=== PATIENT | female | born 1950 | race Caucasian/White ===

== ENCOUNTER 2020-03-21 11:41 | Emergency (ER) | payer BC, OTHER ==
[2020-03-22 14:15] LABS: SARS-CoV-2 MS2 Positive; SARS-CoV-2 N Gene Negative; SARS-CoV-2 S Gene Negative; SARS-CoV-2 orf1ab Negative
== END 2020-03-21 11:56 | disposition home or self-care (01) ==
LOC: ERS 11:41
DX: Z20.828 Contact with and (suspected) exposure to other viral communicable diseases (principal); Z79.899 Other long term (current) drug therapy
CPT/HCPCS: 87635; 99283; U0003

== ENCOUNTER 2021-03-05 06:45 | Outpatient (CLI) | payer BC | END 2021-03-05 06:46 | disposition home or self-care (01) | LOC: BICMRI 06:45 | PROVIDERS: ATTEND Specialist | DX: C50.911 Malignant neoplasm of unspecified site of right female breast (principal) | CPT/HCPCS: 82565; A9577; C8908 ==

== ENCOUNTER 2021-03-05 07:02 | Outpatient (CLI) | payer BC | END 2021-03-05 07:03 | disposition home or self-care (01) | LOC: BICMAMMO 07:02 | PROVIDERS: ATTEND Specialist | DX: Z08 Encounter for follow-up examination after completed treatment for malignant neoplasm (principal); Z85.3 Personal history of malignant neoplasm of breast | CPT/HCPCS: 77066; G0279 ==

== ENCOUNTER 2021-03-19 08:17 | Observation (INO) | payer BC ==
[2021-03-18 14:30] VITALS: BMI 20.5
[2021-03-19] MEDS ORDERED: Acetaminophen 500 MG TAB ONE (08:49)
[2021-03-19] MEDS ORDERED: Ketorolac Tromethamine 30 MG/ML VIAL ONE (08:49)
[2021-03-19] MEDS ORDERED: Scopolamine 1.5 mg/72 hour Patch ONE (08:53)
[2021-03-19 09:02] LABS: #Basophils 0.1 thou/uL (0.0-0.2); #Eosinphils 0.2 thou/uL (0.0-0.7); #Lymphocytes 1.9 thou/uL (1.20-3.40); #Monocytes 0.5 thou/uL (0.11-0.59); #Neutrophils 1.7 thou/uL (1.40-6.50); %Basophils 2.2 % (0.0-1.0); %Eosinophils 3.7 % (0.0-10.0); %Monocytes 10.8 % (0.0-10.0); %Neutrophils 39.4 % (42.0-75.0); Hemoglobin 14.3 g/dL (12.0-16.0); Mean Corpuscular HGB CONC 31.7 g/dL (32.0-36.0); Mean Corpuscular Hemoglobin 28.4 pg (27.0-31.0); Mean Corpuscular Volume 89.5 fL (78.0-98.0); Mean Platelet Volume 7.2 fL (7.4-10.4); Platelet Count 396 thou/uL (130-400); RBC Distribution Width 12.2 % (11.5-14.5); Red Blood Cell (RBC) Count 5.06 mill/uL (4.20-5.40); White Blood Cell (WBC) Count 4.3 thou/uL (4.8-10.8)
[2021-03-19 09:24] LABS: Anion Gap 15 mmol/L (10-20); BUN (Urea Nitrogen) 14 mg/dL (9.8-20.1); Calc. Creatinine Clearance 61 mL/min (70-130); Calcium 9.6 mg/dL (7.8-10.44); Carbon Dioxide 20 mmol/L (23-31); Chloride 108 mmol/L (98-107); Glucose 78 mg/dL (80-115); Potassium 4.1 mmol/L (3.5-5.1); Sodium 139 mmol/L (136-145)
[2021-03-19] MEDS ORDERED: Bupivacaine 0.25% HCL 30 ML VIAL ONE (10:04)
[2021-03-19] MEDS ORDERED: Isosulfan Blue 50 MG/5 ML VIAL ONE (10:04)
[2021-03-19] MEDS ORDERED: Lidocaine 1% w/Epinephrine 1:100K 20 ML VIAL ONE (10:04)
[2021-03-19] MEDS ORDERED: Midazolam HCl 2 mg/2 ml Vial ONE (10:42)
[2021-03-19] MEDS ORDERED: Fentanyl 100 MCG/2 ML VIAL ONE ×3 (10:42→15:53)
[2021-03-19] MEDS ORDERED: Glycopyrrolate 0.2 MG/ML 5 ML SYRINGE ONE (10:52)
[2021-03-19] MEDS ORDERED: Dexamethasone 20 MG/5 ML VIAL ONE (10:52)
[2021-03-19] MEDS ORDERED: Lidocaine 1% PF 5 ML VIAL ONE (10:52)
[2021-03-19] MEDS ORDERED: Rocuronium Bromide 10 MG/ML (10ML VIAL) ONE (10:52)
[2021-03-19] MEDS ORDERED: PROPOFOL 200 MG/20 ML VIAL ONE (10:52)
[2021-03-19] MEDS ORDERED: Ondansetron PF 4 MG/2 ML Vial ONE (10:52)
[2021-03-19] MEDS ORDERED: Fentanyl 250 MCG/5 ML VIAL ONE (12:32)
[2021-03-19] MEDS ORDERED: Sodium Chloride 0.9% 0 ML ONE (14:08)
[2021-03-19] MEDS ORDERED: Morphine 2 MG/ML VIAL SLOW IVP PRN (15:44)
[2021-03-19] MEDS ORDERED: Ondansetron PF 4 MG/2 ML Vial IVP PRN (15:44)
[2021-03-19] MEDS ORDERED: Morphine 4 MG/ML VIAL SLOW IVP PRN (15:44)
[2021-03-19] MEDS ORDERED: Dextrose 5% in Water 1,000 ML IV PRN (15:44)
[2021-03-19] MEDS ORDERED: hydrALAZINE 20 MG/ML VIAL SLOW IVP PRN (15:44)
[2021-03-19] MEDS ORDERED: Promethazine HCl 25 MG/ML VIAL IM PRN (15:44)
[2021-03-19] MEDS ORDERED: Dextrose 50% Abboject 50 ML SYRINGE SLOW IVP PRN (15:44)
[2021-03-19] MEDS ORDERED: Sodium Chloride 0.9% 1,000 ML IV SCH (20:15)
[2021-03-19] MEDS: HYDROcodone/Acetaminophen 7.5/325 mg Tablet PO PRN (21:20)
[2021-03-19] MEDS: Senokot 8.6 MG TAB PO SCH (21:21)
[2021-03-19] MEDS: Famotidine 20 MG TAB PO SCH (21:21)
[2021-03-19] MEDS: Lactated Ringer's 1,000 ML IV SCH (22:45)
[2021-03-20 03:55] LABS: Hemoglobin 8.8 g/dL (12.0-16.0); Mean Corpuscular HGB CONC 33.7 g/dL (32.0-36.0); Mean Corpuscular Hemoglobin 30.4 pg (27.0-31.0); Mean Corpuscular Volume 90.2 fL (78.0-98.0); Mean Platelet Volume 7.6 fL (7.4-10.4); Platelet Count 265 thou/uL (130-400); RBC Distribution Width 12.4 % (11.5-14.5); Red Blood Cell (RBC) Count 2.88 mill/uL (4.20-5.40); White Blood Cell (WBC) Count 5.9 thou/uL (4.8-10.8)
[2021-03-20 04:12] LABS: Band 20 % (5-11); Hypochromia SLIGHT = 6-15 cells (100X) (0-5/hpf); Lymphocytes 15 % (21-51); MDiff Complete? YES; Monocytes 14 % (0-10); Neutrophil 51 % (42-75); Platelet Morphology Comment Appears Adequate
[2021-03-20 04:15] LABS: Anion Gap 13 mmol/L (10-20); BUN (Urea Nitrogen) 14 mg/dL (9.8-20.1); Calc. Creatinine Clearance 63 mL/min (70-130); Calcium 7.9 mg/dL (7.8-10.44); Carbon Dioxide 16 mmol/L (23-31); Chloride 111 mmol/L (98-107); Glucose 131 mg/dL (80-115); Potassium 4.1 mmol/L (3.5-5.1); Sodium 136 mmol/L (136-145)
[2021-03-20] MEDS: Levothyroxine Sodium 25 MCG TAB PO SCH (05:27)
[2021-03-20] MEDS: Lactated Ringer's 1,000 ML IV SCH ×3 (05:41→18:27)
[2021-03-20] MEDS ORDERED: Lactated Ringer's 1,000 ML IV SCH (08:45)
[2021-03-20] MEDS: Famotidine 20 MG TAB PO SCH ×2 (09:08→20:51)
[2021-03-20] MEDS ORDERED: Fentanyl 100 MCG/2 ML VIAL ONE (12:38)
[2021-03-20] MEDS ORDERED: Midazolam HCl 2 mg/2 ml Vial ONE (12:38)
[2021-03-20] MEDS ORDERED: Lidocaine 1% w/Epinephrine 1:100K 20 ML VIAL ONE (12:43)
[2021-03-20] MEDS ORDERED: Bupivacaine 0.25% HCL 30 ML VIAL ONE (12:43)
[2021-03-20] MEDS ORDERED: PHENYLEPHRINE-NS 100 MCG/ML 10 ML SYRINGE ONE (13:10)
[2021-03-20] MEDS ORDERED: Dexamethasone 20 MG/5 ML VIAL ONE (13:10)
[2021-03-20] MEDS ORDERED: Lidocaine 1% PF 5 ML VIAL ONE (13:10)
[2021-03-20] MEDS ORDERED: Ondansetron PF 4 MG/2 ML Vial ONE (13:10)
[2021-03-20] MEDS ORDERED: PROPOFOL 200 MG/20 ML VIAL ONE (13:10)
[2021-03-20] MEDS: HYDROcodone/Acetaminophen 7.5/325 mg Tablet PO PRN (18:27)
[2021-03-20] MEDS: Senokot 8.6 MG TAB PO SCH (20:51)
[2021-03-21] MEDS: HYDROcodone/Acetaminophen 7.5/325 mg Tablet PO PRN ×2 (03:10→09:02)
[2021-03-21] MEDS: Lactated Ringer's 1,000 ML IV SCH (03:11)
[2021-03-21] MEDS: Levothyroxine Sodium 25 MCG TAB PO SCH (06:06)
[2021-03-21 06:45] LABS: #Eosinphils 0.1 thou/uL (0.0-0.7); #Lymphocytes 2.3 thou/uL (1.20-3.40); #Monocytes 0.8 thou/uL (0.11-0.59); #Neutrophils 3.4 thou/uL (1.40-6.50); %Basophils 0.2 % (0.0-1.0); %Eosinophils 0.8 % (0.0-10.0); %Lymphocytes 35.1 % (21.0-51.0); %Monocytes 12.3 % (0.0-10.0); %Neutrophils 51.6 % (42.0-75.0); Hemoglobin 7.3 g/dL (12.0-16.0); Mean Corpuscular HGB CONC 33.5 g/dL (32.0-36.0); Mean Corpuscular Hemoglobin 30.1 pg (27.0-31.0); Mean Corpuscular Volume 89.6 fL (78.0-98.0); Mean Platelet Volume 7.8 fL (7.4-10.4); Platelet Count 254 thou/uL (130-400); RBC Distribution Width 12.5 % (11.5-14.5); Red Blood Cell (RBC) Count 2.43 mill/uL (4.20-5.40); White Blood Cell (WBC) Count 6.6 thou/uL (4.8-10.8)
[2021-03-21 07:08] LABS: Anion Gap 10 mmol/L (10-20); BUN (Urea Nitrogen) 11 mg/dL (9.8-20.1); Calc. Creatinine Clearance 72 mL/min (70-130); Calcium 8.1 mg/dL (7.8-10.44); Carbon Dioxide 24 mmol/L (23-31); Chloride 111 mmol/L (98-107); Glucose 102 mg/dL (80-115); Potassium 3.6 mmol/L (3.5-5.1); Sodium 141 mmol/L (136-145)
[2021-03-21] MEDS ORDERED: Ferrous Sulfate 325 MG TAB PO SCH (08:00)
[2021-03-21 08:25] VITALS: BP 121/61; TEMP 98.5
[2021-03-21] MEDS: Famotidine 20 MG TAB PO SCH (09:03)
== END 2021-03-21 12:45 | disposition home or self-care (01) ==
LOC: SDC 08:17 → ONC 15:44
PROVIDERS: ADMIT Specialist; ATTEND Specialist
PROC: 0HTT0ZZ Resection of Right Breast, Open Approach (ICD-10-PCS; principal; 2021-03-19)
PROC: 0H9T0ZX Drainage of Right Breast, Open Approach, Diagnostic (ICD-10-PCS; 2021-03-19)
PROC: 02HV33Z Insertion of Infusion Device into Superior Vena Cava, Percutaneous Approach (ICD-10-PCS; 2021-03-19)
DX: C50.511 Malignant neoplasm of lower-outer quadrant of right female breast (principal); C77.3 Secondary and unspecified malignant neoplasm of axilla and upper limb lymph nodes; E21.3 Hyperparathyroidism, unspecified; F17.210 Nicotine dependence, cigarettes, uncomplicated; Z17.0 Estrogen receptor positive status [ER+]; Z79.899 Other long term (current) drug therapy
CPT/HCPCS: 36415; 71045; 80048; 85025; 88304; 88305; 88307; 88311; 88331; 88332; 93005; 93010; C1788; G0378; J0690; J1100; J1642; J1885; J2250; J2405; J2704; J3010; Q9968; S0020

== ENCOUNTER 2021-03-26 12:06 | Day surgery (SDC) | payer BC ==
[~2021-03-26 12:06] MED LIST: Lactated Ringer's 1,000 ML IV SCH; Ondansetron PF 4 MG/2 ML Vial IVP PRN
[2021-03-26 12:12] VITALS: BP 117/56
[2021-03-26] MEDS ORDERED: LACTATED RINGER S IV SCH (12:15)
[2021-03-26] MEDS ORDERED: THIAMINE HCL IV SCH (12:15)
[2021-03-26] MEDS ORDERED: MULTIVITAMINS IV SCH (12:15)
[2021-03-26] MEDS ORDERED: Sodium Chloride 0.9% 20 ML ONE (14:37)
== END 2021-03-26 15:11 | disposition home or self-care (01) ==
LOC: ONC/OP 12:06
PROVIDERS: ATTEND Specialist
DX: E86.0 Dehydration (principal)
CPT/HCPCS: 96365; 96366; J1642; J3411; J7120

== ENCOUNTER 2021-03-29 13:23 | Outpatient (CLI) | payer BC | END 2021-03-29 13:24 | disposition home or self-care (01) | LOC: ULT 13:23 | PROVIDERS: ATTEND Internal Medicine Hematology & Oncology | DX: Z51.11 Encounter for antineoplastic chemotherapy (principal); C50.511 Malignant neoplasm of lower-outer quadrant of right female breast; I07.1 Rheumatic tricuspid insufficiency; I37.1 Nonrheumatic pulmonary valve insufficiency | CPT/HCPCS: 93306 ==

== ENCOUNTER 2021-04-01 09:43 | Outpatient (CLI) | payer BC ==
[2021-04-01] MEDS ORDERED: Iopamidol 370 76% 100 ML VIAL ONE (10:09)
== END 2021-04-01 09:44 | disposition home or self-care (01) ==
LOC: CT 09:43
PROVIDERS: ATTEND Internal Medicine Hematology & Oncology
DX: C50.511 Malignant neoplasm of lower-outer quadrant of right female breast (principal); Z90.11 Acquired absence of right breast and nipple
CPT/HCPCS: 71260; 74177; 78306; A9503

== ENCOUNTER 2021-04-18 11:58 | Day surgery (SDC) | payer BC ==
[2021-04-17 14:02] VITALS: BMI 21.4
[2021-04-18] MEDS ORDERED: Ketorolac Tromethamine 30 MG/ML VIAL ONE (12:30)
[2021-04-18] MEDS ORDERED: Acetaminophen 500 MG TAB ONE (12:30)
[2021-04-18] MEDS ORDERED: Dexamethasone 20 MG/5 ML VIAL ONE (14:16)
[2021-04-18] MEDS ORDERED: PROPOFOL 200 MG/20 ML VIAL ONE (14:16)
[2021-04-18] MEDS ORDERED: Lidocaine 1% PF 5 ML VIAL ONE (14:16)
[2021-04-18] MEDS ORDERED: Ondansetron PF 4 MG/2 ML Vial ONE (14:16)
[2021-04-18] MEDS ORDERED: Fentanyl 100 MCG/2 ML VIAL ONE ×2 (14:24→14:32)
[2021-04-18] MEDS ORDERED: Lidocaine 1% w/Epinephrine 1:100K 20 ML VIAL ONE (14:56)
== END 2021-04-18 17:00 | disposition home or self-care (01) ==
LOC: SDC 11:58
PROVIDERS: ATTEND Specialist
PROC: 0JC60ZZ Extirpation of Matter from Chest Subcutaneous Tissue and Fascia, Open Approach (ICD-10-PCS; principal; 2021-04-18)
DX: L76.32 Postprocedural hematoma of skin and subcutaneous tissue following other procedure (principal); K59.09 Other constipation; Z79.899 Other long term (current) drug therapy; Z87.891 Personal history of nicotine dependence
CPT/HCPCS: J0690; J1100; J1885; J2405; J2704; J3010